=== PATIENT | female | born 1960 | race Caucasian/White ===

== ENCOUNTER 2017-11-02 13:21 | Emergency (ER) | payer OTHER ==
[~2017-11-02] VITALS: Ht 162.6 cm; Wt 54.5 kg
[2017-11-02] MEDS ORDERED: BUPR100 PO (13:27)
[2017-11-02] MEDS ORDERED: PANT40TA25 PO (13:27)
[2017-11-02] MEDS ORDERED: ESCI10TA PO (13:27)
[2017-11-02] MEDS ORDERED: HYDROCODONE/ACETAMINOPHEN 5-325 MG TABLET PO ONE (14:15)
[2017-11-02 15:21] VITALS: BP 114/63
[2017-11-02] MEDS ORDERED: KETOROLAC TROMETHAMINE 30 MG/ML VIAL IM ONE (15:30)
[2017-11-02] MEDS ORDERED: ONDANSETRON HCL 4 MG TABLET PO ONE (15:30)
== END 2017-11-02 16:19 | disposition home or self-care (01) ==
LOC: EMS 13:22
DX: S42.292A Other displaced fracture of upper end of left humerus, initial encounter for closed fracture (principal); F32.9 Major depressive disorder, single episode, unspecified; Z79.899 Other long term (current) drug therapy; W10.1XXA Fall (on)(from) sidewalk curb, initial encounter; Y93.01 Activity, walking, marching and hiking; Y92.89 Other specified places as the place of occurrence of the external cause; Y99.8 Other external cause status
CPT/HCPCS: 29105; 70450; 71045; 73030; 73100; 96372; 99284; J1885; Q0162